=== PATIENT | female | born 1990 | race Asian ===

== ENCOUNTER → 2016-08-11 | Outpatient (CLI) | payer OTHER ==
--- NOTE | 2016-08-11 12:48 | DIAGNOSTIC IMAGING REPORT ---
RIGHT ANKLE MIN 3 VIEWS CLINICAL HISTORY: Right ankle pain status post trauma COMPARISON: None. DISCUSSION: No fractures or dislocations are visualized. The ankle mortise appears intact on these nonstress views. IMPRESSION: No fractures or dislocations identified. Electronically signed by: Yogesh Rust M.D. 08/11/2016 12:47 PM Dictated Date/Time: 08/11/2016 12:46 PM
== END | disposition home or self-care (01) ==
LOC: C.RDSM 08-10 12:26
PROVIDERS: ATTEND Physician Assistant
DX: S93.491D Sprain of other ligament of right ankle, subsequent encounter (principal); X58.XXXD Exposure to other specified factors, subsequent encounter

== ENCOUNTER → 2016-12-07 | Outpatient (CLI) | payer OTHER ==
--- NOTE | 2016-12-07 11:07 | DIAGNOSTIC IMAGING REPORT ---
RIGHT ANKLE MRI HISTORY: Right ankle injury and pain. TECHNIQUE: Multiplanar multisequence MRI of the right ankle was performed without the use of intravenous contrast. COMPARISON STUDY: Right ankle 08/11/2016. FINDINGS: Minimal marrow edema at the distal tip of the lateral malleolus. No fracture or dislocation within the right ankle. Remaining osseous structures demonstrate a normal signal intensity. Diffuse thickening of the anterior talofibular ligament with minimal surrounding edema. This is consistent with chronic injury/tear. The calcaneofibular, posterior talofibular, and medial ankle ligaments are intact. The Achilles tendon, extensor tendons, flexor tendons, and peroneal tendons are normal in course, caliber, and signal intensity. Trace joint effusion. The plantar fascia is intact. IMPRESSION: 1. Minimal marrow edema at the distal tip of the lateral malleolus which may be due to a resolving contusion. No fracture or dislocation. 2. Diffuse thickening of the anterior talofibular ligament with minimal surrounding edema. This is consistent with chronic injury/tear. Electronically signed by: Robb Sylvester M.D. 12/07/2016 11:05 AM Dictated Date/Time: 12/07/2016 10:59 AM
== END | disposition home or self-care (01) ==
LOC: C.MRI 09:45
PROVIDERS: ATTEND Physical Medicine & Rehabilitation Sports Medicine
DX: S93.419D Sprain of calcaneofibular ligament of unspecified ankle, subsequent encounter (principal); X58.XXXD Exposure to other specified factors, subsequent encounter